=== PATIENT | male | born 1975 | race Caucasian/White ===

== ENCOUNTER 2022-05-02 19:58 | Emergency (ER) | payer OTHER, SELFPAY ==
[2022-05-02 20:03] VITALS: BP 160/90; PULSE 100; RESP 17; TEMP 37; O2SAT 98; BMI 25.1
--- NOTE | 2022-05-02 21:03 | PC.NURSE ---
Patient removed his own C-collar while in waiting room
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
[2022-05-03] MEDS: Ibuprofen 600 MG TABLET PO (00:57)
== END 2022-05-03 01:00 | disposition home or self-care (01) ==
PROVIDERS: Emergency Provider Internal Medicine
DX: S80.02XA Contusion of left knee, initial encounter (principal); V43.52XA Car driver injured in collision with other type car in traffic accident, initial encounter; Y93.89 Activity, other specified; Y92.414 Local residential or business street as the place of occurrence of the external cause; Y99.9 Unspecified external cause status
CPT/HCPCS: 99283